=== PATIENT | female | born 1940 | race Caucasian/White ===

== ENCOUNTER → 2016-11-23 | Outpatient (CLI) | payer MEDICARE ==
--- NOTE | 2016-11-23 13:00 | Diagnostic Imaging Report ---
CLINICAL INDICATION: Patient with thyroid nodules. Left thyroidectomy. EXAM: Thyroid ultrasound. COMPARISON: Thyroid ultrasound dated 05/24/2016. FINDINGS: Evaluation of the left thyroid bed shows no significant abnormality. There is evidence of left thyroidectomy. The right thyroid gland measures 4.7 cm x 3.3 cm x 2.5 cm. There is a 2.2 cm x 1.9 cm x 1.9 cm predominantly solid nodule with multiple cystic changes within it. This nodule has not significantly changed in the interim and previously measured 2.2 cm x 1.9 cm x 1.8 cm. There is another nodule in the isthmus which currently measures 2.1 cm x 1.0 cm x 1.8 cm which is stable compared to the prior study and previously measured 1.8 cm x 2.1 cm x 1.0 cm and is also heterogeneous isoechoic, but predominantly solid. There is some central Doppler flow involving these nodules. IMPRESSION: 1: Stable thyroid ultrasound with two stable thyroid nodules, one in the right thyroid gland and one in the isthmus. This is described in detail above. 2: Surgically absent left thyroid gland. Dictated by: Dictated on workstation # [id number]
== END ==
LOC: RAD 10:30
PROVIDERS: ATTEND Nurse Practitioner
DX: E04.2 Nontoxic multinodular goiter (principal)
CPT/HCPCS: 76536

== ENCOUNTER → 2017-11-26 | Outpatient (CLI) | payer MEDICARE, OTHER ==
--- NOTE | 2017-11-26 09:42 | Diagnostic Imaging Report ---
PROCEDURE: US Thyroid. TECHNIQUE: Multiple real-time grayscale images were obtained of the thyroid in various projections. INDICATION: Thyroid nodule. Comparison made with prior examination of 11/23/2016. FINDINGS: The right lobe of the thyroid measures 4.7 x 2.9 x 2.4 cm. There is a persistent heterogeneous nodule in the right lobe measuring 2.3 x 1.7 x 1.8 cm. There is also persistent nodule in the isthmus measuring 2.1 x 1.1 x 1.8 cm. The left lobe of the thyroid is surgically absent. No new nodules are appreciated. IMPRESSION: Unchanged nodules in the right lobe of thyroid and isthmus. By history these have both previously been biopsied. Dictated by: Dictated on workstation # [id number]
== END ==
LOC: RAD 08:16
PROVIDERS: ATTEND Otolaryngology Otolaryngology/Facial Plastic Surgery
DX: E04.2 Nontoxic multinodular goiter (principal)
CPT/HCPCS: 76536

== ENCOUNTER → 2021-01-05 | Outpatient (CLI) | payer MEDICARE ==
--- NOTE | 2021-01-05 16:17 | Diagnostic Imaging Report ---
PROCEDURE: US thyroid. TECHNIQUE: Multiple real-time grayscale images were obtained of the thyroid in various projections. INDICATION: Thyroid nodule. COMPARISON: 12/15/2018. FINDINGS: The right thyroid lobe measures 3.9 x 2.6 x 2.1 cm in size. Background echotexture appears normal. There is a mildly heterogeneous mostly solid nodule with no calcifications in the mid right thyroid, measuring 2.1 x 1.8 x 1.6 cm in size. The isthmus is 8 mm in thickness. There is a nodule measuring 2.1 x 1.0 x 1.6 cm in size which is isoechoic and mostly solid. No calcification is seen. Both nodules in the isthmus and right thyroid lobe appear stable in size compared to 05/24/2016. The left thyroid lobe is absent. IMPRESSION: Nodules in the right thyroid and isthmus appear stable since at least 05/24/2016. No new nodule is seen. Dictated by: Dictated on workstation # [id number]
== END ==
LOC: RAD 13:45
PROVIDERS: ATTEND Otolaryngology Otolaryngology/Facial Plastic Surgery
DX: E04.2 Nontoxic multinodular goiter (principal)
CPT/HCPCS: 76536

== ENCOUNTER → 2022-01-11 | Outpatient (CLI) | payer MEDICARE ==
[~2022-01-11] MED LIST: BARIUM for suspension 96% w/w (Vanilla Silq Medium Density) PO ONE; BARIUM for suspension 98% w/w (Vanilla Silq High Density) PO ONE
--- NOTE | 2022-01-11 12:22 | Diagnostic Imaging Report ---
INDICATION: Difficulty swallowing. Patient ingested effervescent crystals as well as thin and thick barium and imaging of the esophagus was performed in multiple obliquities. 0.7 minutes of fluoroscopic time was utilized. Preliminary radiograph shows the heart to be enlarged. There is a dual-lead left subclavian cardiac pacemaker. The lungs appear clear. Esophagus has a fairly smooth contour. There are occasional tertiary contractions present. No mass or stricture is seen. No gastroesophageal reflux was demonstrated. There is no hiatal hernia. IMPRESSION: Occasional tertiary contractions. The esophagram is otherwise unremarkable. Dictated by: Dictated on workstation # [id number]
--- NOTE | 2022-01-11 14:31 | Diagnostic Imaging Report ---
PROCEDURE: US Thyroid. TECHNIQUE: Multiple real-time grayscale images were obtained of the thyroid in various projections. INDICATION Thyroid nodules, follow-up. CORRELATION is made with prior study 01/05/2021. The left lobe of the thyroid is surgically absent. The right lobe measures 4.4 x 3.0 x 2.3 cm. The isthmus is 6 mm in thickness. The right lobe of the thyroid does contain a mixed echogenicity solid nodule measuring 2.2 x 1.7 x 1.8 cm. This compares with 2.1 x 1.8 x 1.6 cm on prior. Isthmus contains a 2.0 x 0.9 x 1.9 cm nodule. This compared with 2.1 x 1.0 x 1.6 cm on prior study. No new mass is detected. IMPRESSION: Overall stable appearance to the right lobe and isthmus nodules when compared with examination one year earlier. Dictated by: Dictated on workstation # [id number]
== END ==
LOC: RAD 10:15
PROVIDERS: ATTEND Otolaryngology Otolaryngology/Facial Plastic Surgery
DX: E04.2 Nontoxic multinodular goiter (principal); R13.10 Dysphagia, unspecified
CPT/HCPCS: 74220; 76536

== ENCOUNTER → 2022-12-06 | Outpatient (CLI) | payer MEDICARE ==
--- NOTE | 2022-12-06 16:40 | Diagnostic Imaging Report ---
PROCEDURE: US Thyroid. TECHNIQUE: Multiple real-time grayscale images were obtained of the thyroid in various projections. INDICATION: Follow-up thyroid nodules. History of left-sided thyroidectomy in 1975. COMPARISON: 01/11/2022. FINDINGS: Prior left thyroidectomy changes are visualized. The right lobe measures 4.9 cm in length, 3.0 cm AP, and 2.4 cm transverse. The isthmus measures 0.7 cm. There is normal background echogenicity and color Doppler flow within the thyroid. A nodule seen in the mid aspect of the right lobe of the thyroid measuring 2.1 x 2.0 x 1.8 cm with mostly solid components and increased echogenicity. Previously, this measured 2.2 x 1.7 x 1.8 cm. A mostly solid nodule is seen in the isthmus of the thyroid measuring 2.0 x 0.9 x 1.9 cm with isoechoic features, previously measuring 2.1 x 1.0 x 1.6 cm. IMPRESSION: 1. Essentially stable thyroid nodules since the prior exam. No new suspicious nodules. Follow-up with thyroid ultrasound could be considered in one to two years to ensure continued stability. Dictated by: Dictated on workstation # [id number]
== END ==
LOC: RAD 12:21
PROVIDERS: ATTEND Otolaryngology Otolaryngology/Facial Plastic Surgery
DX: E04.2 Nontoxic multinodular goiter (principal)
CPT/HCPCS: 76536